=== PATIENT | female | born 1935 | race Caucasian/White ===

== ENCOUNTER → 2016-08-14 | Outpatient (CLI) | payer BC ==
--- NOTE | 2016-08-14 13:53 | DIAGNOSTIC IMAGING REPORT ---
LUMBAR SPINE 5 VIEWS HISTORY: Pain M25.551 COMPARISON: None. FINDINGS: There is no fracture. Mild degenerative disc change. Subtle grade 1 anterolisthesis of L4 and L5. Moderate degenerative changes of the posterior elements IMPRESSION: Mild to moderate degenerative change. No acute process. Electronically signed by: Conrado Moreira M.D. 08/14/2016 1:51 PM Dictated Date/Time: 08/14/2016 1:51 PM
--- NOTE | 2016-08-14 14:12 | DIAGNOSTIC IMAGING REPORT ---
RIGHT HIP 2 VIEWS CLINICAL HISTORY: Right hip pain. FINDINGS: AP and frog-leg views of the right hip are obtained. No prior studies are available for comparison at the time of dictation. The skeletal structures are osteopenic. No fracture is seen in the right hip or the imaged right hemipelvis. Advanced arthritic change is present in the right hip. There is significant bony sclerosis identified in the femoral head and the acetabulum with foci of subchondral cystic change. There is significant loss of the joint space. Sclerotic change is seen within the right sacroiliac joint and the pubic symphysis. The overlying soft tissues are within normal limits. Phleboliths and suture material are observed in the pelvis. IMPRESSION: 1. No right hip fracture is identified. 2. Osteopenia and advanced arthritic change as above. Electronically signed by: Michael De La Rosa M.D. 08/14/2016 2:10 PM Dictated Date/Time: 08/14/2016 2:09 PM
--- NOTE | 2016-08-14 14:33 | DIAGNOSTIC IMAGING REPORT ---
SI JOINTS 3 OR MORE VIEWS CLINICAL HISTORY: Right hip pain. COMPARISON STUDY: None. FINDINGS: Sclerosis at the bilateral sacroiliac joints consistent with degenerative change. The sacrum is intact. No fractures identified. No erosions within the sacroiliac joints. IMPRESSION: Mild bilateral sacroiliac joint osteoarthritis. Electronically signed by: Frank Conway M.D. 08/14/2016 2:31 PM Dictated Date/Time: 08/14/2016 2:30 PM
== END | disposition home or self-care (01) ==
LOC: C.RADBC 12:35
PROVIDERS: ATTEND Nurse Practitioner Family
DX: M25.551 Pain in right hip (principal); M85.88 Other specified disorders of bone density and structure, other site

== ENCOUNTER 2018-10-15 14:12 | Inpatient (IN) ==
[2018-10-15] MEDS ORDERED: SODIUM CHLORIDE 0.9% 250 ML IV PRN ×2 (14:34→20:34)
[2018-10-15] MEDS ORDERED: SODIUM CHLORIDE 0.9% 500 ML IV SCH (14:45)
[2018-10-15 15:20] LABS: Partial Thromboplastin Ratio 0.8; Partial Thromboplastin Time 22.2 Seconds (21.0-31.0); Prothrombin Time 10.2 Seconds (9.0-12.0)
[2018-10-15 15:23] LABS: Alanine Aminotransferase 16 U/L (12-78); Aspartate Aminotransferase 9 U/L (15-37); BUN Creatinine Ratio 33.8 (10-20); Blood Urea Nitrogen 23 mg/dl (7-18); Calcium 8.5 mg/dl (8.5-10.1); Carbon Dioxide 23 mmol/L (21-32); Chloride 111 mmol/L (98-107); Est GFR (African American) 93.8; Est GFR (Non-African American) 80.9; Glucose 129 mg/dl (70-99); Potassium 3.9 mmol/L (3.5-5.1); Sodium 140 mmol/L (136-145)
[2018-10-15 15:27] LABS: Albumin Globulin Ratio 0.7 (0.9-2); Alkaline Phosphatase 94 U/L (45-117); Bilirubin,Total 0.1 mg/dl (0.2-1); Globulin 4.1 gm/dl (2.5-4.0); Total Protein 7.1 gm/dl (6.4-8.2); Troponin I < 0.015 ng/ml (0-0.045)
[2018-10-15 15:30] LABS: Basophils # (auto) 0.08 K/uL (0-0.2); Eosinophils # (auto) 0.16 K/uL (0-0.5); Eosinophils % (auto) 1.9 %; Hematocrit (blood only) 21.1 % (37-47); Hemoglobin 5.8 g/dL (12.0-16.0); Immature Granulocytes # (auto) 0.04 K/uL (0.00-0.02); Immature Granulocytes % (auto) 0.5 %; Lymphocytes # (auto) 1.94 K/uL (1.2-3.4); Lymphocytes % (auto) 23.5 %; Mean Corpuscular Hgb Conc 27.5 g/dL (32-36); Mean Corpuscular Volume 60.5 fL (80-100); Mean Platelet Volume 9.1 fL (7.4-10.4); Monocytes # (auto) 0.98 K/uL (0.11-0.59); Monocytes % (auto) 11.9 %; Neutrophils # (auto) 5.04 K/uL (1.4-6.5); Neutrophils % (auto) 61.2 %; Platelet Count 488 K/uL (130-400); RDW Coefficient of Variation 19.1 % (11.5-14.5); RDW Standard Deviation 41.8 fL (36.4-46.3); Red Blood Count 3.49 M/uL (4.2-5.4); White Blood Count 8.24 K/uL (4.8-10.8)
[2018-10-15 16:00] LABS: Hypochromasia Present; Microcytosis Present
--- NOTE | 2018-10-15 17:13 | History & Physical Report ---
Date of Service October 15, 2018 Assessment & Plan (1) Symptomatic anemia: Transfuse 2 units packed red blood cells tonight. Repeat CBC in the morning. Consult GI service to set up outpatient endoscopy Present on Admission?: Yes (2) Essential hypertension: The patient is somewhat hypertensive. Continue lisinopril Present on Admission?: Yes (3) Iron deficiency anemia due to chronic blood loss: Check serum iron, TIBC, ferritin levels. Treat accordingly. Outpatient endoscopy Present on Admission?: Yes (4) DVT prophylaxis: Will avoid heparin and Lovenox. SCDs ordered History of Present Illness 83-year-old female with a chief complaint of easy fatigue and no energy. She had lab work drawn earlier today and was found to have microcytic anemia with a hemoglobin of 5.8. She was slightly tachycardic when she arrived in the ED but not hypotensive. She has significant microcytosis consistent with iron deficiency. She has no history of thalassemia. She denies any overt melena or hematochezia. I suspect she has chronic GI blood loss producing severe iron deficiency causing gradual onset of what is now symptomatic anemia. 2 units of packed red blood cells have been ordered for transfusion. GI consultation will be requested. She does not wish to undergo endoscopy during this hospital stay but would rather have this done as an outpatient. She does meet admission criteria Primary Care Provider: MARY Hester Allergies Allergy/AdvReac Type Severity Reaction Status Date / Time No Known Allergies Allergy Unverified 10/15/18 14:52 Home Medications Home Medications Medication Instructions Recorded Confirmed Type Tumeric 500 mg PO UD 10/15/18 10/15/18 History lisinopril 0 mg PO UD 10/15/18 10/15/18 History ggmzapbqdfgt-dzxz-kbiry acid 1 tab PO QAM 10/15/18 10/15/18 History [Centrum] Past Med/Surg History Medical History Iron deficiency anemia due to chronic blood loss (Chronic) Essential hypertension (Chronic) Symptomatic anemia (Acute) No pertinent family history Low hemoglobin Surgical History No pertinent past surgical history Social History Preferred Language: Kazakh Communication Ability: Effective Visual Impairment: No Limitations Hearing Ability: Normal Feels Safe at Home: Yes Smoking Status: Never smoker Review of Systems Review of Systems: All systems reviewed & are unremarkable except as noted in HPI & below Physical Exam Constitutional: WD/WN, vitals as above Eyes: PERRL, conjunctivae normal, anicteric sclerae ENMT: external ear and nose normal, oropharynx normal Neck: trachea midline, no thyromegaly Respiratory: normal respiratory effort, lungs clear to auscultation Cardiovascular: RRR, no murmur, no edema Gastrointestinal (Abdomen): normal bowel sounds, soft, nontender, no hepatosplenomegaly Musculoskeletal: no cyanosis or clubbing, extremities motor strength 5/5 Skin: no rashes, warm and dry Pallor noted Neurologic: CN's II-XI intact bilaterally and moves all extremities; no focal motor deficits Results & Data Vital Signs (Past 12 Hours) Vital Signs Temp Pulse Pulse Resp BP BP Pulse Ox 10/15/18 16:50 95 H 16 99 10/15/18 16:40 93 H 20 98 10/15/18 16:38 91 H 17 10/15/18 16:10 117 H 20 10/15/18 16:00 118 H 17 171/91 H 96 10/15/18 15:53 116 H 29 H 10/15/18 15:40 112 H 15 94 10/15/18 15:30 113 H 113 H 16 156/74 H 156/74 H 95 10/15/18 15:29 109 H 20 96 10/15/18 14:15 36.4 C L 130 H 20 133/84 99 Laboratory Results 10/15/18 14:54 10/15/18 14:54
[2018-10-15] MEDS ORDERED: ALUMINUM/MAGNESIUM SUSP 30 ML UDC PO PRN (19:17)
[2018-10-15] MEDS ORDERED: ONDANSETRON INJ 2 MG/ML 2 ML VIAL IV PRN (19:17)
[2018-10-15] MEDS ORDERED: ACETAMINOPHEN 325 MG TAB PO PRN (19:17)
[2018-10-15 19:22] LABS: Ferritin 5.8 ng/ml (8-388)
--- NOTE | 2018-10-15 19:35 | Emergency Department Note ---
Entered by Sally Ayala acting as a scribe for History of Present Illness General Chief complaint: Testing Request Stated complaint: BLOOD TRANSFUSION, REF BY Source: patient Mode of arrival: ambulatory Limitations: no limitations History of Present Illness Onset (ago): day(s) (today) Location: head (global), upper extremity (global) and lower extremity (global) Pain Consistency: + other (episode) Quality: + other (testing request) Associated symptoms: + weakness and + other (The patient complains of fatigue. The patient denies abdominal pain, melena, and hematochezia. ); no chest pain, no cough, no nausea/vomiting (The patient denies vomiting.) and no shortness of breath The patient is an 83 year old female who presents to the ED with an episode of a testing request. The patient states that she was referred by her PCP today after routine labs showed a hemoglobin of 6.0. The patient complains of fatigue and weakness. She states that she has been belching more than usual. The patient denies melena, chest pain, shortness of breath, hematochezia, cough, and vomiting. No other exacerbating or remitting factors. She does note that she does feels rundown. She is from [facility] and spends part of the of her time there in part of her time here. Her she has no previous hemoglobins on her palm discussion with her PCP here. She does have a history of hypertension and osteoporosis on lisinopril and aspirin. Home Medications Home Medications Medication Instructions Recorded Confirmed Type Tumeric 500 mg PO UD 10/15/18 10/15/18 History lisinopril 0 mg PO UD 10/15/18 10/15/18 History sugxjudjtgri-rrnx-zujwd acid 1 tab PO QAM 10/15/18 10/15/18 History [Centrum] Allergies Allergy/AdvReac Type Severity Reaction Status Date / Time No Known Allergies Allergy Unverified 10/15/18 14:52 Past Med/Surg History Medical History Iron deficiency anemia due to chronic blood loss (Chronic) Essential hypertension (Chronic) Symptomatic anemia (Acute) No pertinent family history Low hemoglobin Surgical History No pertinent past surgical history Social History Preferred Language: Bruneian Communication Ability: Effective Visual Impairment: No Limitations Hearing Ability: Normal Practice Architect Required: No Beliefs That Will Affect Care: None Current Living Situation: Alone Other Information That Helps Us Care for You: No Feels Safe at Home: Yes Safety Concerns: Feels Safe At This Time Smoking Status: Unknown if ever smoked Hx Alcohol Use: No Hx Substance Use: No Review of Systems See HPI for pertinent positives & negatives. and A total of 10 systems reviewed and were otherwise negative Physical Exam Vital Signs Vital Signs - 24 hr 10/15/18 14:15 10/15/18 15:29 10/15/18 15:30 Temperature 36.4 C L Temperature Source Oral Sepsis Recent Fever Within 48 Hours No Sepsis Action Taken by Nursing No Action Required Pulse Rate 130 H 109 H 113 H Pulse Rate [Left Finger] 113 H Pulse Rate from SpO2 Sensor 114 H Pulse Rhythm Regular Pulse Rhythm [Left Finger] Regular Pulse Strength Pulse Strength [Left Finger] Normal Respiratory Rate 20 20 16 Respiratory Effort / Characteristics Non-Labored Spontaneous Non-Labored Spontaneous Respiratory Depth Normal Normal Respiratory Pattern Regular Regular Blood Pressure 133/84 156/74 H Blood Pressure [Right Arm] 156/74 H Blood Pressure Mean 100 101 Blood Pressure Mean [Right Arm] 101 Blood Pressure Position Blood Pressure Position [Right Arm] Sitting Pulse Oximetry 99 96 95 Oxygen Delivery Method Room Air Room Air Room Air 10/15/18 15:40 10/15/18 15:53 10/15/18 16:00 Temperature Temperature Source Sepsis Recent Fever Within 48 Hours Sepsis Action Taken by Nursing Pulse Rate 112 H 116 H 118 H Pulse Rate [Left Finger] Pulse Rate from SpO2 Sensor 114 H 117 H Pulse Rhythm Pulse Rhythm [Left Finger] Pulse Strength Pulse Strength [Left Finger] Respiratory Rate 15 29 H 17 Respiratory Effort / Characteristics Respiratory Depth Respiratory Pattern Blood Pressure 171/91 H Blood Pressure [Right Arm] Blood Pressure Mean 117 Blood Pressure Mean [Right Arm] Blood Pressure Position Blood Pressure Position [Right Arm] Pulse Oximetry 94 96 Oxygen Delivery Method 10/15/18 16:10 10/15/18 16:38 10/15/18 16:40 Temperature Temperature Source Sepsis Recent Fever Within 48 Hours Sepsis Action Taken by Nursing Pulse Rate 117 H 91 H 93 H Pulse Rate [Left Finger] Pulse Rate from SpO2 Sensor 93 H Pulse Rhythm Pulse Rhythm [Left Finger] Pulse Strength Pulse Strength [Left Finger] Respiratory Rate 20 17 20 Respiratory Effort / Characteristics Respiratory Depth Respiratory Pattern Blood Pressure Blood Pressure [Right Arm] Blood Pressure Mean Blood Pressure Mean [Right Arm] Blood Pressure Position Blood Pressure Position [Right Arm] Pulse Oximetry 98 Oxygen Delivery Method 10/15/18 16:50 10/15/18 17:00 10/15/18 17:05 Temperature Temperature Source Sepsis Recent Fever Within 48 Hours Sepsis Action Taken by Nursing Pulse Rate 95 H 95 H Pulse Rate [Left Finger] Pulse Rate from SpO2 Sensor 94 H 95 H Pulse Rhythm Pulse Rhythm [Left Finger] Pulse Strength Pulse Strength [Left Finger] Respiratory Rate 16 18 Respiratory Effort / Characteristics Respiratory Depth Respiratory Pattern Blood Pressure 178/86 H 173/91 H Blood Pressure [Right Arm] Blood Pressure Mean 116 118 Blood Pressure Mean [Right Arm] Blood Pressure Position Blood Pressure Position [Right Arm] Pulse Oximetry 99 99 Oxygen Delivery Method 10/15/18 17:11 10/15/18 17:13 10/15/18 17:15 Temperature 36.9 C Temperature Source Oral Sepsis Recent Fever Within 48 Hours Sepsis Action Taken by Nursing Pulse Rate 95 H 95 H 95 H Pulse Rate [Left Finger] Pulse Rate from SpO2 Sensor 95 H 94 H Pulse Rhythm Regular Pulse Rhythm [Left Finger] Pulse Strength Normal Pulse Strength [Left Finger] Respiratory Rate 20 18 15 Respiratory Effort / Characteristics Respiratory Depth Respiratory Pattern Blood Pressure 173/91 H 177/80 H 197/93 H Blood Pressure [Right Arm] Blood Pressure Mean 118 112 127 Blood Pressure Mean [Right Arm] Blood Pressure Position Sitting Blood Pressure Position [Right Arm] Pulse Oximetry 97 99 98 Oxygen Delivery Method 10/15/18 17:20 10/15/18 17:30 10/15/18 17:31 Temperature 36.7 C Temperature Source Oral Sepsis Recent Fever Within 48 Hours Sepsis Action Taken by Nursing Pulse Rate 91 H 91 H 91 H Pulse Rate [Left Finger] Pulse Rate from SpO2 Sensor 92 H 89 92 H Pulse Rhythm Regular Pulse Rhythm [Left Finger] Pulse Strength Normal Pulse Strength [Left Finger] Respiratory Rate 19 19 20 Respiratory Effort / Characteristics Respiratory Depth Respiratory Pattern Blood Pressure 185/79 H 185/79 H Blood Pressure [Right Arm] Blood Pressure Mean 114 114 Blood Pressure Mean [Right Arm] Blood Pressure Position Sitting Blood Pressure Position [Right Arm] Pulse Oximetry 99 100 99 Oxygen Delivery Method 10/15/18 17:40 10/15/18 17:45 10/15/18 17:50 Temperature 36.6 C Temperature Source Oral Sepsis Recent Fever Within 48 Hours Sepsis Action Taken by Nursing Pulse Rate 92 H 89 90 Pulse Rate [Left Finger] Pulse Rate from SpO2 Sensor 92 H 90 90 Pulse Rhythm Regular Pulse Rhythm [Left Finger] Pulse Strength Normal Pulse Strength [Left Finger] Respiratory Rate 17 21 14 Respiratory Effort / Characteristics Respiratory Depth Respiratory Pattern Blood Pressure 170/81 H Blood Pressure [Right Arm] Blood Pressure Mean 110 Blood Pressure Mean [Right Arm] Blood Pressure Position Sitting Blood Pressure Position [Right Arm] Pulse Oximetry 98 99 98 Oxygen Delivery Method 10/15/18 18:00 10/15/18 18:10 10/15/18 18:15 Temperature 36.7 C Temperature Source Oral Sepsis Recent Fever Within 48 Hours Sepsis Action Taken by Nursing Pulse Rate 91 H 96 H 101 H Pulse Rate [Left Finger] Pulse Rate from SpO2 Sensor 91 H 95 H Pulse Rhythm Regular Pulse Rhythm [Left Finger] Pulse Strength Normal Pulse Strength [Left Finger] Respiratory Rate 13 13 18 Respiratory Effort / Characteristics Respiratory Depth Respiratory Pattern Blood Pressure 170/68 H 214/106 H Blood Pressure [Right Arm] Blood Pressure Mean 102 142 Blood Pressure Mean [Right Arm] Blood Pressure Position Blood Pressure Position [Right Arm] Pulse Oximetry 99 99 98 Oxygen Delivery Method 10/15/18 18:38 10/15/18 18:45 10/15/18 19:17 Temperature 36.7 C Temperature Source Oral Sepsis Recent Fever Within 48 Hours Sepsis Action Taken by Nursing Pulse Rate 94 H Pulse Rate [Left Finger] 95 H 95 H Pulse Rate from SpO2 Sensor Pulse Rhythm Pulse Rhythm [Left Finger] Regular Regular Pulse Strength Pulse Strength [Left Finger] Normal Normal Respiratory Rate 18 Respiratory Effort / Characteristics Non-Labored Respiratory Depth Normal Respiratory Pattern Regular Blood Pressure Blood Pressure [Right Arm] 154/80 H Blood Pressure Mean Blood Pressure Mean [Right Arm] 104 Blood Pressure Position Blood Pressure Position [Right Arm] Sitting Pulse Oximetry 95 Oxygen Delivery Method Room Air Room Air GENERAL: Sitting up in bed. Alert, well appearing, well nourished, no distress, non-toxic EYE EXAM: Normal conjunctiva. OROPHARYNX: no exudate, no erythema, lips, buccal mucosa, and tongue normal and mucous membranes are moist NECK: supple, no nuchal rigidity, no adenopathy, non-tender LUNGS: Clear to auscultation. Normal chest wall mechanics HEART: Tachycardic, no murmurs, S1 normal and S2 normal ABDOMEN: abdomen soft, non-tender, normo-active bowel sounds, no masses, no rebound or guarding. RECTAL: Heme negative. BACK: Back is symmetrical on inspection and there is no deformity, no midline tenderness, no CVA tenderness. SKIN: no rashes and no bruising UPPER EXTREMITIES: upper extremities are grossly normal. LOWER EXTREMITIES: No pitting edema. NEURO EXAM: Normal sensorium, cranial nerves II-XII grossly intact, normal speech, no gross weakness of arms, no gross weakness of legs. Course 1425: Past medical records reviewed. The patient was evaluated in room B11B. A complete history and physical examination was performed. 1532: I updated the patient on the results of her labs and EKG. The patient states that she does not want to stay. 1600: I reviewed the patient's case with the patient's PCP. They state that they have no previous hemoglobin levels. 1603: I updated the patient. 1605: I reviewed the patient's case with Dr. Moy Farmer. He will evaluate the patient for further management. Consultations Consultation #1: 1605: I reviewed the patient's case with Dr. Moy Farmer. He will evaluate the patient for further management. Time: 16:05 Administered Medications Discontinued Medications Sodium Chloride (Nss) 500 mls @ 999 mls/hr IV .[id number] KENNA Stop: 10/15/18 15:15 Last Infusion: 10/15/18 15:58 Dose: 0 mls/hr Documented by: [id number] Admin: 10/15/18 15:27 Dose: 999 mls/hr Documented by: [id number] Sodium Chloride (Nss) 250 mls @ 15 mls/hr IV .[id number] PRN PRN Reason: For Transfusion Stop: 11/14/18 14:33 Last Admin: 10/15/18 15:27 Dose: 15 mls/hr Documented by: [id number] Medical Decision Making Differential Diagnosis Differential diagnoses: Appendicitis, diverticulitis, PUD, biliary pathology, UTI, pancreatitis, obstruction, mesenteric ischemia, aortic pathology, infections, inflammatory bowel disease, renal colic, as well as others were entertained. Medical Records Attestation: I reviewed the patient's medical records. Home Medications Current Medication List: was personally reviewed by me Laboratory Data Attestation: I reviewed the patient's lab results. Result diagrams: 10/15/18 14:54 10/15/18 14:54 Lab Results 10/15/18 10/15/18 10/15/18 Range/Units 14:54 14:54 14:54 WBC 8.24 (4.8-10.8) K/uL RBC 3.49 L (4.2-5.4) M/uL Hgb 5.8 L* (12.0-16.0) g/dL Hct 21.1 L (37-47) % MCV 60.5 L (80-100) fL MCH 16.6 L (25-34) pg MCHC 27.5 L (32-36) g/dL RDW Std Deviation 41.8 (36.4-46.3) fL RDW Coeff of Afsaneh 19.1 H (11.5-14.5) % Plt Count 488 H (130-400) K/uL MPV 9.1 (7.4-10.4) fL Immature Gran % (Auto) 0.5 % Neut % (Auto) 61.2 % Lymph % (Auto) 23.5 % Roberts % (Auto) 11.9 % Eos % (Auto) 1.9 % Baso % (Auto) 1.0 % Immature Gran # (Auto) 0.04 H (0.00-0.02) K/uL Neut # (Auto) 5.04 (1.4-6.5) K/uL Lymph # (Auto) 1.94 (1.2-3.4) K/uL Roberts # (Auto) 0.98 H (0.11-0.59) K/uL Eos # (Auto) 0.16 (0-0.5) K/uL Baso # (Auto) 0.08 (0-0.2) K/uL Hypochromasia Present Microcytosis Present PT 10.2 (9.0-12.0) Seconds INR 1.0 (0.9-1.1) APTT 22.2 (21.0-31.0) Seconds PTT Ratio 0.8 Sodium 140 (136-145) mmol/L Potassium 3.9 (3.5-5.1) mmol/L Chloride 111 H (98-107) mmol/L Carbon Dioxide 23 (21-32) mmol/L Anion Gap 6.0 (3-11) BUN 23 H (7-18) mg/dl Creatinine 0.68 (0.6-1.2) mg/dl Est Cr Clr Drug Dosing 63.0 ml/min Est GFR ( Amer) 93.8 Est GFR (Non-Af Amer) 80.9 BUN/Creatinine Ratio 33.8 H (10-20) Glucose 129 H (70-99) mg/dl Calcium 8.5 (8.5-10.1) mg/dl Iron (35-150) mcg/dl TIBC (250-450) mcg/dl Ferritin (8-388) ng/ml Total Bilirubin 0.1 L (0.2-1) mg/dl AST 9 L (15-37) U/L ALT 16 (12-78) U/L Alkaline Phosphatase 94 (45-117) U/L Troponin I < 0.015 (0-0.045) ng/ml Total Protein 7.1 (6.4-8.2) gm/dl Albumin 3.0 L (3.4-5.0) gm/dl Globulin 4.1 H (2.5-4.0) gm/dl Albumin/Globulin Ratio 0.7 L (0.9-2) Blood Type Blood Type Recheck Antibody Screen Crossmatch 10/15/18 10/15/18 10/15/18 Range/Units 14:54 14:57 18:54 WBC (4.8-10.8) K/uL RBC (4.2-5.4) M/uL Hgb (12.0-16.0) g/dL Hct (37-47) % MCV (80-100) fL MCH (25-34) pg MCHC (32-36) g/dL RDW Std Deviation (36.4-46.3) fL RDW Coeff of Afsaneh (11.5-14.5) % Plt Count (130-400) K/uL MPV (7.4-10.4) fL Immature Gran % (Auto) % Neut % (Auto) % Lymph % (Auto) % Roberts % (Auto) % Eos % (Auto) % Baso % (Auto) % Immature Gran # (Auto) (0.00-0.02) K/uL Neut # (Auto) (1.4-6.5) K/uL Lymph # (Auto) (1.2-3.4) K/uL Roberts # (Auto) (0.11-0.59) K/uL Eos # (Auto) (0-0.5) K/uL Baso # (Auto) (0-0.2) K/uL Hypochromasia Microcytosis PT (9.0-12.0) Seconds INR (0.9-1.1) APTT (21.0-31.0) Seconds PTT Ratio Sodium (136-145) mmol/L Potassium (3.5-5.1) mmol/L Chloride (98-107) mmol/L Carbon Dioxide (21-32) mmol/L Anion Gap (3-11) BUN (7-18) mg/dl Creatinine (0.6-1.2) mg/dl Est Cr Clr Drug Dosing ml/min Est GFR ( Amer) Est GFR (Non-Af Amer) BUN/Creatinine Ratio (10-20) Glucose (70-99) mg/dl Calcium (8.5-10.1) mg/dl Iron 15 L (35-150) mcg/dl TIBC 404 (250-450) mcg/dl Ferritin 5.8 L (8-388) ng/ml Total Bilirubin (0.2-1) mg/dl AST (15-37) U/L ALT (12-78) U/L Alkaline Phosphatase (45-117) U/L Troponin I (0-0.045) ng/ml Total Protein (6.4-8.2) gm/dl Albumin (3.4-5.0) gm/dl Globulin (2.5-4.0) gm/dl Albumin/Globulin Ratio (0.9-2) Blood Type O Positive Blood Type Recheck O Positive Antibody Screen NEGATIVE Crossmatch See Detail ECG Data Attestation: I personally reviewed and interpreted this ECG as follows: Indication: weakness Rate (beats per minute): 110 Rhythm: sinus tachycardia Findings: + left axis deviation; no PVC Blood Pressure Blood Pressure Findings: Elevated blood pressure Blood Pressure Disposition: further management by hospitalist MERY Narrative Patient is an 80-year-old female who presents the ER referred in by PCP. Patient was found to have a hemoglobin of 6. Upon presentation heart rate is in the 130s. Hemoglobin was found to be 5.8. She was hypertensive. INR was unremarkable. She does not take any blood thinners. Rectal was heme-negative with scant stool. BMP was unremarkable as well. Patient was typed and crossed and ordered for 2 units of PRBCs while in the ER. She was given a bolus of IV fluids. Heart rate did trend down. She initially went to go home but after multiple discussion she was agreeable to staying. I did discuss with PCP. Patient was updated bedside. Discussed with the hospitalist. Patient was admitted for symptomatic anemia with a heart rate of 130 and hemoglobin of 5.8 and ordered for 2 units PRBCs. She was consented at bedside by myself. Impression & Plan Symptomatic anemia, Tachycardia Critical Care Time I have personally spent 35 minutes of critical care time in the direct management of this patient. This includes bedside care, interpretation of diagnostic studies, and testing, discussion with consultants, patient, and family members, and other required patient management activities. This 35 minutes is in excess of all separately billable procedures. Critical Care Time: Yes Total Critical Care Time: 35 Discharge Plan Visit Data *Final* Discharge Date/Time: 10/15/18 18:25 Chief Complaint: Testing Request Stated Complaint: BLOOD TRANSFUSION, REF BY ED Provider: Casper Toussaint Discharge Problem: Symptomatic anemia, Tachycardia Patient Disposition: Admitted As Inpatient Discharge Instructions Interventions: ED Discharge Assessment Last Done: 10/15/18 18:25 The scribe's documentation has been prepared under my direction and personally reviewed by me in its entirety. I confirm that the note above accurately reflects all work, treatment, procedures, and medical decision making performed by me.
[2018-10-15] MEDS: SODIUM CHLORIDE 0.45 % 1,000 ML IV SCH (23:40)
[2018-10-16 08:05] LABS: Hematocrit (blood only) 27.4 % (37-47); Mean Corpuscular Hgb Conc 29.2 g/dL (32-36); Mean Corpuscular Volume 66.8 fL (80-100); Mean Platelet Volume 9.3 fL (7.4-10.4); Platelet Count 422 K/uL (130-400); RDW Coefficient of Variation 24.3 % (11.5-14.5); RDW Standard Deviation 57.7 fL (36.4-46.3); White Blood Count 8.88 K/uL (4.8-10.8)
[2018-10-16 08:07] LABS: Anisocytosis Present; Basophils # (auto) 0.05 K/uL (0-0.2); Basophils % (auto) 0.6 %; Eosinophils # (auto) 0.27 K/uL (0-0.5); Hypochromasia Present; Immature Granulocytes # (auto) 0.03 K/uL (0.00-0.02); Immature Granulocytes % (auto) 0.3 %; Lymphocytes # (auto) 1.68 K/uL (1.2-3.4); Lymphocytes % (auto) 18.9 %; Microcytosis Present; Monocytes % (auto) 16.9 %; Neutrophils # (auto) 5.35 K/uL (1.4-6.5); Neutrophils % (auto) 60.3 %; Ovalocytes 1+; Polychromasia 1+
[2018-10-16 08:37] LABS: BUN Creatinine Ratio 20.1 (10-20); Calcium 8.8 mg/dl (8.5-10.1); Creatinine Clr Calc Pharmacy 77.5 ml/min; Est GFR (African American) 99.9; Est GFR (Non-African American) 86.2; Potassium 3.7 mmol/L (3.5-5.1)
[2018-10-16] MEDS ORDERED: LISINOPRIL 5 MG TAB PO SCH (09:00)
[2018-10-16] MEDS ORDERED: CEROVITE ADV FORMULA TAB PO SCH (09:00)
[2018-10-16] MEDS: SODIUM CHLORIDE 0.45 % 1,000 ML IV SCH (12:04)
--- NOTE | 2018-10-16 13:48 | Gastrointestinal Consultation ---
Date of Consultation October 16, 2018 Assessment & Plan (1) Symptomatic anemia: 83 yo female with symptomatic anemia in the setting of no obvious GI blood loss (no melena/hematochezia). She needs an EGD and colonoscopy and would like to do this as an outpatient. This is certainly reasonable and will be arranged. - EGD and colonoscopy as an outpatient. - Please call with questions. (2) Iron deficiency anemia due to chronic blood loss: History of Present Illness Reason for Consultation: anemia Attending Physician: Speedy Ferrara History of Present Illness 83 yo female with a history of HTN admitted after seeing her PCP for the first time in 2-3 years for a physical and being noted to have severe microcytic anemi a with hgb of 5.8 and MCV of 60. She tells me that she has noticed over the last 6-12 months that she has been more tired than usual, less able to keep up with her usual busy life. For example, she was spending time with her grandkids and had a harder time than usual keeping up with them. She denies any problems with melena, hematochezia. She had a colonoscopy 10 years ago which was normal. She was taking NSAIDs for hip and back pain. At times, ASA 325 mg 2 at a time for a few days a week. Allergies Allergy/AdvReac Type Severity Reaction Status Date / Time No Known Allergies Allergy Unverified 10/15/18 14:52 Home Medications Home Medications Medication Instructions Recorded Confirmed Type Tumeric 500 mg PO UD 10/15/18 10/15/18 History lisinopril 0 mg PO UD 10/15/18 10/15/18 History onxbhodumpdw-alpb-vipkk acid 1 tab PO QAM 10/15/18 10/15/18 History [Centrum] Patient History Medical History Iron deficiency anemia due to chronic blood loss (Chronic) Essential hypertension (Chronic) Symptomatic anemia (Acute) No pertinent family history Low hemoglobin Surgical History No pertinent past surgical history Social History Preferred Language: Citizen Of [place] Communication Ability: Effective Visual Impairment: No Limitations Hearing Ability: Normal Door Liner Required: No Beliefs That Will Affect Care: None Current Living Situation: Alone Other Information That Helps Us Care for You: No Feels Safe at Home: Yes Safety Concerns: Feels Safe At This Time Smoking Status: Unknown if ever smoked Hx Alcohol Use: No Hx Substance Use: No Review of Systems Review of Systems: 12 systems reviewed and negative except as noted Physical Exam Constitutional: WD/WN, vitals as above Respiratory: normal respiratory effort, lungs clear to auscultation Cardiovascular: RRR, no murmur, no edema Gastrointestinal (Abdomen): normal bowel sounds, soft, nontender, no hepatosplenomegaly Results & Data Vital Signs (Past 12 Hours) Vital Signs Temp Pulse Pulse Resp BP Pulse Ox 10/16/18 09:35 77 10/16/18 08:05 36.6 C 72 16 149/76 H 95 10/16/18 03:59 36.5 C 80 22 155/68 H 97
--- NOTE | 2018-10-22 08:10 | Discharge Summary ---
Date of Service October 16, 2018 Admission HPI Per Admitting Provider 83-year-old female with a chief complaint of easy fatigue and no energy. She had lab work drawn earlier today and was found to have microcytic anemia with a hemoglobin of 5.8. She was slightly tachycardic when she arrived in the ED but not hypotensive. She has significant microcytosis consistent with iron deficiency. She has no history of thalassemia. She denies any overt melena or hematochezia. I suspect she has chronic GI blood loss producing severe iron deficiency causing gradual onset of what is now symptomatic anemia. 2 units of packed red blood cells have been ordered for transfusion. GI consultation will be requested. She does not wish to undergo endoscopy during this hospital stay but would rather have this done as an outpatient. She does meet admission criteria Principal Diagnosis Symptomatic Anemia Discharge Exam Constitutional: WD/WN, vitals as above Eyes: PERRL, conjunctivae normal, anicteric sclerae ENMT: external ear and nose normal, oropharynx normal Neck: trachea midline, no thyromegaly Respiratory: normal respiratory effort, lungs clear to auscultation Cardiovascular: RRR, no murmur, no edema Gastrointestinal (Abdomen): normal bowel sounds, soft, nontender, no hepatosplenomegaly Musculoskeletal: no cyanosis or clubbing, extremities motor strength 5/5 Skin: no rashes, warm and dry; No longer pallor noted Neurologic: CN's II-XI intact bilaterally and moves all extremities; no focal motor deficits Discharge Data Allergies Allergy/AdvReac Type Severity Reaction Status Date / Time No Known Allergies Allergy Unverified 10/15/18 14:52 Consultations 10/15/18 16:14 ED Decision to Admit Stat 10/15/18 19:17 Consult Gastroenterology Routine 10/16/18 16:09 Consult [facility] 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 Repeat CBC in the morning. Consult GI service to set up outpatient endoscopy Appreciate GI consult 83 yo female with symptomatic anemia in the setting of no obvious GI blood loss (no melena/hematochezia). She needs an EGD and colonoscopy and would like to do this as an outpatient. This is certainly reasonable and will be arranged. - EGD and colonoscopy as an outpatient. As hemoglobin did rise appropaiitely,, had extensive discussion with patient inlcuding disposition: monitoring patient for anoter day vs discharge, She decided on being discharged as she understands this is likley chronic and has been losing blood gradually over course of months. Will have patient obtain an EGD and Colonoscopy via outpatient. But will have her recheck her blood count in 2-3 days (2) Essential hypertension: The patient is somewhat hypertensive. Continue lisinopril (3) Iron deficiency anemia due to chronic blood loss: Check serum iron, TIBC, ferritin levels. Treat accordingly. Outpatient endoscopy (4) DVT prophylaxis: Will avoid heparin and Lovenox. SCDs ordered Total Time Total Time Spent Total Time Spent (In Minutes): 40 Total Time Includes: Examination of the Patient, Discharge Planning and Medication Reconciliation Discharge Plan Discharge Items Patient Disposition: Home - Self-Care Reason For Visit: SYMPTOMATIC ANEMIA Discharge Diagnosis: Symptomatic Anemia Discharge Goals: Decrease discomfort Activity: Resume your previous activity Non-emergency contact: Primary Care Provider Call non-emergency contact if: you have any medication questions Follow-up/Referrals: Keily Griffin CRNP [Primary Care Provider] - Diet: Regular Addtl Provider Instructions: Limit medicine like Aspirin, ibuprofen, naprosyn. Check blood test on Thursday. Will call on Thursday to schedule upper and lower endoscopy. Prescriptions: New omeprazole 20 mg capsule,delayed release(DR/EC) 20 mg PO DAILY 28 Days Qty: 28 RF: 0 Continued lisinopril 5 mg Tablet PO UD RF: 0 Centrum 18-400 mg-mcg Tablet 1 tab PO QAM RF: 0 Tumeric 500 mg PO UD RF: 0 Stand-Alone Forms: [facility] Discharge Orders: Discharge Order (Routine); Ordered 10/16/18 Ordered By: Speedy Ferrara Admission Data Admit Date/Time: 10/15/18 17:09 Attending Provider: Speedy Ferrara Admit Provider: Carlos Winter Primary Care Provider: Keily Griffin Other Providers: Jessa Wiley Service: Telemetry Other Interventions: Discharge Summary Assessment (RN) Last Done: 10/16/18 15:58 DC Date/Time DO NOT enter until pt leaves facility: 10/16/18 17:03
== END 2018-10-16 17:03 | disposition home or self-care (01) | DRG 812 ==
LOC: ED 14:12 → 2S 17:09 → SUATTDRO 17:09 → 2S 18:25
DX: I10 Essential (primary) hypertension; Z79.899 Other long term (current) drug therapy; R53.1 Weakness; D50.0 Iron deficiency anemia secondary to blood loss (chronic)